=== PATIENT | female | born 1960 | race Hispanic/Latino ===

== ENCOUNTER → 2018-04-07 | Outpatient (CLI) | payer OTHER ==
--- NOTE | 2018-04-07 17:02 | Diagnostic Imaging Report ---
TECHNIQUE: Computed tomography imaging of the left ankle and foot foot was performed WITHOUT injected contrast. HISTORY: Pain COMPARISON: None available. DISCUSSION: Subacute fracture of the extra-articular portion of the posterior calcaneus with displacement of the posterior aspect. No acute fractures visualized. Vascular calcifications. Generalized soft tissue swelling foot IMPRESSION: Subacute nonunited extra articular calcaneus fracture with displacement of the posterior portion. No acute fracture visualized. Signed by: Dr. Bradley Boss M.D. on 04/07/2018 4:58 PM
== END ==
LOC: CT 15:46
PROVIDERS: ATTEND Family Medicine
DX: M25.572 Pain in left ankle and joints of left foot (principal)

== ENCOUNTER → 2021-12-04 | Outpatient (CLI) | payer OTHER | LOC: CT 14:01 | PROVIDERS: ATTEND Family Medicine | DX: S09.90XA Unspecified injury of head, initial encounter (principal) | CPT/HCPCS: 70450 ==

== ENCOUNTER → 2023-04-24 | Outpatient (REF) | payer OTHER | LOC: CT 15:46 | PROVIDERS: ATTEND Family Medicine | DX: S20.212A Contusion of left front wall of thorax, initial encounter (principal); R29.6 Repeated falls; Z04.2 Encounter for examination and observation following work accident | CPT/HCPCS: 71250 ==